=== PATIENT | female | born 1960 | race Caucasian/White ===

== ENCOUNTER → 2023-10-12 16:12 | Outpatient (REF) | payer OTHER, SELFPAY | LOC: WDC 16:12 | PROVIDERS: ATTENDING PHYSICIAN Obstetrics & Gynecology Gynecology; FAMILY PHYSICIAN Physician Assistant | DX: Z12.31 Encounter for screening mammogram for malignant neoplasm of breast (principal) | CPT/HCPCS: 77063; 77067 ==

== ENCOUNTER → 2023-10-27 15:04 | Outpatient (REF) | payer OTHER, SELFPAY ==
[2023-10-27 15:53] LABS: % Basophils 0.6 % (0-2); % Eosinophils 1.9 % (0-6); % Immature Granulocytes 0.2 % (0-0.5); % Lymphocytes 46.3 % (20.5-51.1); % Monocytes 12.9 % (1.7-9.3); % Neutrophils 38.1 % (42.2-75.2); Absolute Eosinophils 0.1 10^3/uL (0-0.7); Absolute Lymphocytes 2.4 10^3/uL (1.2-3.4); Absolute Monocytes 0.7 10^3/uL (0.1-0.6); Hematocrit 38.3 % (37.0-47.0); Hemoglobin 12.8 g/dL (12.0-16.0); Mean Corp Hgb Conc. 33.4 g/dL (33.0-37.0); Mean Corpuscular Hgb 31.1 pg (27.0-31.0); Mean Platelet Volume 10.8 fL (7.4-10.4); Nucleated Red Blood Cells % 0 %; Platelet Count 293 10^3/uL (130-400); Red Blood Cell Count 4.12 10^6/uL (4.20-5.40); Red Cell Dist. Width 13.2 % (11.5-14.5); White Blood Cell Count 5.3 10^3/uL (4.8-10.8)
[2023-10-27 16:17] LABS: Blood Urea Nitrogen 22 mg/dl (7-17); Calcium 10.1 mg/dl (8.4-10.2); Carbon Dioxide 32 mmol/L (22-30); Chloride 99 mmol/L (98-107); Glucose 89 mg/dl (70-99); Potassium 4.1 mmol/L (3.5-5.1); Sodium 137 mmol/L (135-145); eGFR > 60.00
== END ==
LOC: RCS 15:04
PROVIDERS: ATTENDING PHYSICIAN Student in an Organized Health Care Education/Training Program; FAMILY PHYSICIAN Physician Assistant
DX: Z01.818 Encounter for other preprocedural examination (principal)
CPT/HCPCS: 36415; 80048; 85025; 93005

== ENCOUNTER → 2023-11-16 07:07 | Outpatient (REF) | payer OTHER, SELFPAY | LOC: MRI 07:07 | PROVIDERS: ATTENDING PHYSICIAN Student in an Organized Health Care Education/Training Program; FAMILY PHYSICIAN Physician Assistant | DX: M79.672 Pain in left foot (principal) | CPT/HCPCS: 73718 ==

== ENCOUNTER → 2023-12-23 13:44 | Outpatient (REF) | payer OTHER, SELFPAY | LOC: WDC 13:44 | PROVIDERS: ATTENDING PHYSICIAN Obstetrics & Gynecology Gynecology; FAMILY PHYSICIAN Physician Assistant | DX: R92.2 Inconclusive mammogram (principal) | CPT/HCPCS: 76641 ==

== ENCOUNTER → 2024-01-19 06:32 | Day surgery (SDC) | payer OTHER, MEDICARE, SELFPAY | LOC: GI 06:32 | PROVIDERS: ATTENDING PHYSICIAN Internal Medicine | DX: K63.89 Other specified diseases of intestine (principal); K63.3 Ulcer of intestine; K64.8 Other hemorrhoids; R10.32 Left lower quadrant pain; K92.1 Melena; R19.4 Change in bowel habit | CPT/HCPCS: 45380; 88305; 88342 ==

== ENCOUNTER 2024-01-23 23:27 | Emergency (ER) | payer OTHER, MEDICARE, SELFPAY ==
[2024-01-23 23:30] VITALS: BP 130/92
--- NOTE | 2024-01-23 23:38 | ED.GENMED ---
History of Present Illness
General
Chief Complaint: Chest Problem
Source: patient and family
Exam Limitations: none
Time Seen by Provider: 01/23/24 23:38
Nursing documentation reviewed up to this point in time: agreed with
History of Present Illness
History of Present Illness:
This a pleasant 63-year-old female who presents with chest pain. She states that it began early yesterday morning. For the last 18 hours, she states that she has been having intermittent chest pain that is worse upon standing. She does have a
cough. She was just started on mesalamine for Crohn's disease. This was on . Patient denies any other symptoms. Denies fever, chills, nausea or vomiting. Denies previous cardiac history.
Review of Systems
Review of Systems
Allergies reviewed?: Yes
Other source history: family
All Other Systems: ROS reviewed and negative except as documented in HPI and ROS
Constitutional: Reports no symptoms
EENT: Reports no symptoms
Respiratory: Reports no symptoms
Cardiac: Reports chest pain and palpitations; Denies diaphoresis, syncope or other
ABD/GI: Reports no symptoms
: Reports no symptoms
Musculoskeletal: Reports no symptoms
Skin: Reports no symptoms
Neurological: Reports no symptoms
Endocrine: Reports no symptoms
Hematologic/Lymphatic: Reports no symptoms
Psychiatric: Reports no symptoms
Phy Exam
General Physical Exam
General Presentation: well appearing and no apparent distress
General Skin: warm and dry
General Habitus: normal
General Mental: alert
General Hydration: appears well hydrated
ENT Exam
ENT Exam: EOMI, pharynx normal, neck supple and normocephalic
Eye Exam
Eye Exam: PERRL, cornea clear and conjunctiva normal
Cardiovascular Exam
Cardiovascular Exam: regular rate/rhythm, no edema, no murmur and normal peripheral pulses
Pulmonary Exam
Pulmonary Exam: lungs clear, no respiratory distress, no rales, no crackles, no rhonchi, no stridor, no wheezing and no cough
Gastrointestinal Exam
Gastrointestinal Exam: normal bowel sounds, non tender, soft, no organomegaly, no pulsatile mass and non distended
Neurological Exam
Neurological Exam: alert, oriented x3, no motor deficits and speech normal
Musculoskeletal Exam
Musculoskeletal Exam: full ROM and no edema
Skin Exam
Skin Exam: normal color, warm/dry, no rash and no petechia
Psychiatric Exam
Psychiatric Exam: normal mood/affect
Scores
Heart Score for Chest Pain Patients
STEMI patient?: No
History: Slightly or Non-Suspicious
ECG: Normal
Age: >/= 65 years
Risk Factors: 1 or 2 Risk Factors
Troponin: </= Normal Limit
Heart Score for Chest Pain Patients: 3
Heart Score Risk: 2.5% MACE over next 6 weeks
Course
Orders/Labs/Results
Orders:
Orders
01/23/24 23:33
Electrocardiogram (*1) Urgent
Reason for Study: Chest Pain
EKG- Treatment ONCE
01/23/24 23:57
IV Insert/Care/Rem.- Treatment PRN
PTT Urgent
Prothrombin Time Urgent
01/23/24 23:58
Cardiac Monitoring- Treatment ONCE
01/23/24 23:59
Complete Blood Count/With Diff Urgent
Comprehensive Metabolic Panel Urgent
Magnesium Urgent
NT-proBNP Urgent
Troponin I Urgent
01/24/24 00:00
CR Chest - 2 Views Urgent
Reason For Exam: respiratory distress
Abnormal Lab Results
01/23/24
23:59
RBC 3.83 L 10^6/uL
(4.20-5.40)
Hgb 11.8 L g/dL
(12.0-16.0)
Hct 35.0 L %
(37.0-47.0)
MPV 10.8 H fL
(7.4-10.4)
Abs Immat Gran (auto) 0.1 H 10^3/uL
(0-0.05)
Absolute Monos (auto) 1.3 H 10^3/uL
(0.1-0.6)
Immature Gran % 1.0 H %
(0-0.5)
Monocytes % 16.5 H %
(1.7-9.3)
BUN 19 H mg/dl
(7-17)
Glucose 107 H mg/dl
(70-99)
AST 115 H U/L
(14-36)
ALT 72 H U/L
(0-35)
Alkaline Phosphatase 150 H U/L
(38-126)
01/23/24 23:59
01/23/24 23:59
Vital Signs
Initial and Last Documented VS:
Initial Vital Signs
Temp Pulse Resp BP Pulse Ox
98 F 90 22 130/92 100
01/23/24 23:30 01/23/24 23:30 01/23/24 23:30 01/23/24 23:30 01/23/24 23:30
Last Documented Vital Signs
Temp Pulse Resp BP Pulse Ox
98 F 90 22 130/92 99
01/23/24 23:30 01/23/24 23:30 01/23/24 23:30 01/23/24 23:30 01/23/24 23:43
MDM/Problems Addressed
Differential Diagnosis Includes:
Chest pain, musculoskeletal chest pain, medication reaction
MDM/Problems Addressed:
63-year-old female with greater than 12 hours of chest pain.
*EKG
Interpreted by ED Provider?: Yes
EKG Intrepretation Date: 01/24/24
Interpretation: normal
Comparison EKG: no changes
Heart Rate: 82
Rate: normal
Rhythm: sinus
[place]: normal axis
Interval: normal interval
QRS Pattern: normal QRS
Ischemia: no ischemia
*Clinical Education Consultant Interpretation
Rate: normal
Interpretation: normal
Heart Rate: 78
Rhythm: sinus
*Critical Care Note
Total Time (30-74mins, 75-104mins- exclusive of procedures): Not Applicable
ED Attending Note
-
Portions of this chart may have been created with voice recognition software.� Occasional wrong word or��sound alike� substitutions may have occurred due to the inherent limitations of voice recognition software.
Discharge Plan
Departure
Instructions: BLOOD PRESSURE, Chest Pain CBC Follow Up
Prescriptions:
No Action
trazodone 50 mg Tablet
25 mg PO HS
levothyroxine 88 mcg Tablet
88 mcg PO DAILY
duloxetine [Cymbalta] 30 mg Capsule,Delayed Release(Dr/Ec)
30 mg PO DAILY
mesalamine 1.2 gram Tablet,Delayed Release (Dr/Ec)
1.2 g PO DAILY
Referrals:
Bebe Bowles PA-C [Family Provider] -
[facility] [Provider Group] - Next open appointment
Activity Restrictions/Additional Instructions:
It was a pleasure meeting you and taking part in your care. We hope for your continued healing and wellness.
Please read discharge instructions in their entirety. However, they are for general education and may not describe your exact diagnosis at discharge. Information on your ER visit and medical conditions were discussed with you along with appropriate
follow up information...
If indicated, please take your medications as instructed and indicated on discharge paperwork.
Please schedule a follow up appointment as directed. Call to schedule an appointment
Please return to the emergency department with ANY change in, persisting, or worsening of symptoms. If any of your symptoms do not improve, or persist, or become more severe within 6-12 hours, please return to the emergency department for further
care.
Please return to the emergency department if you develop a headache, neck pain/stiffness, fever greater than 100.4F, chest pain, shortness of breath, persistent nausea, vomiting, slurred speech, difficulty walking, numbness/tingling, weakness, signs
of infection or any other symptoms that are worrisome to you.
If you have any questions or concerns please do not hesitate to call the Hospital at or E-mail me directly at [email or web address]
Interventions
Interventions:
*Risk Screen - Suicide Last Done: 01/23/24 23:30
*General Assessment Last Done: 01/23/24 23:43
*Neglect/Abuse Screening Last Done: 01/23/24 23:30
ED- Fall Risk Assessment Last Done: 01/23/24 23:43
*ED COVID-19 Vaccine History Last Done: 01/23/24 23:43
ED- Pulmonary Assessment Last Done: 01/23/24 23:43
ED- Cardiac Assessment Last Done: 01/23/24 23:43
Discharge Date and Time
Print Language: MAURITANIAN
[2024-01-23 23:48] VITALS: BP 112/79
[2024-01-24] VITALS: BP 107/70
[2024-01-24 00:26] LABS: APTT 30.4 Sec (23.4-35.0)
[2024-01-24 00:29] LABS: ALT (SGPT) 72 U/L (0-35); AST (SGOT) 115 U/L (14-36); Albumin 3.9 g/dl (3.5-5.0); Alkaline Phosphatase 150 U/L (38-126); Blood Urea Nitrogen 19 mg/dl (7-17); Calcium 9.4 mg/dl (8.4-10.2); Carbon Dioxide 28 mmol/L (22-30); Chloride 100 mmol/L (98-107); Glucose 107 mg/dl (70-99); Magnesium 1.9 mg/dl (1.6-2.3); Potassium 4.2 mmol/L (3.5-5.1); Sodium 137 mmol/L (135-145); Total Bilirubin 0.4 mg/dl (0.2-1.3); Total Protein 6.7 g/dl (6.3-8.2); eGFR > 60.00
[2024-01-24 00:33] VITALS: BMI 20.2
[2024-01-24 00:37] LABS: % Basophils 0.4 % (0-2); % Eosinophils 3.7 % (0-6); % Lymphocytes 28.1 % (20.5-51.1); % Monocytes 16.5 % (1.7-9.3); % Neutrophils 50.3 % (42.2-75.2); Absolute Eosinophils 0.3 10^3/uL (0-0.7); Absolute Immature Granulocytes 0.1 10^3/uL (0-0.05); Absolute Lymphocytes 2.2 10^3/uL (1.2-3.4); Absolute Monocytes 1.3 10^3/uL (0.1-0.6); Absolute Neutrophils 3.9 10^3/uL (1.4-6.5); Hemoglobin 11.8 g/dL (12.0-16.0); Mean Corp Hgb Conc. 33.7 g/dL (33.0-37.0); Mean Corpuscular Hgb 30.8 pg (27.0-31.0); Mean Corpuscular Volume 91.4 fL (81.0-99.0); Mean Platelet Volume 10.8 fL (7.4-10.4); Nucleated Red Blood Cells % 0 %; Platelet Count 339 10^3/uL (130-400); Red Blood Cell Count 3.83 10^6/uL (4.20-5.40); Red Cell Dist. Width 13.2 % (11.5-14.5); White Blood Cell Count 7.8 10^3/uL (4.8-10.8)
[2024-01-24 00:40] LABS: Troponin I < 0.012 ng/ml
[2024-01-24 01:01] VITALS: BP 121/75
[2024-01-24 01:21] LABS: NT-proBNP 637 pg/ml
== END 2024-01-24 01:30 | disposition home or self-care (01) ==
LOC: EMR 23:27
PROVIDERS: EMERGENCY PHYSICIAN Student in an Organized Health Care Education/Training Program; FAMILY PHYSICIAN Physician Assistant
DX: R07.89 Other chest pain (principal); R00.2 Palpitations; R05.9 Cough, unspecified; K50.90 Crohn's disease, unspecified, without complications; Z86.16 Personal history of COVID-19
CPT/HCPCS: 99283; 71046; 80053; 83735; 83880; 84484; 85025; 85610; 85730; 93005

== ENCOUNTER → 2024-02-28 14:19 | Outpatient (REF) | payer MEDICARE, SELFPAY | LOC: RCS 14:19 | PROVIDERS: ATTENDING PHYSICIAN Internal Medicine Cardiovascular Disease; FAMILY PHYSICIAN Physician Assistant | DX: R07.89 Other chest pain (principal) | CPT/HCPCS: 93017 ==

== ENCOUNTER → 2024-03-17 14:01 | Outpatient (REF) | payer MEDICARE, SELFPAY | LOC: RCS 14:01 | PROVIDERS: ATTENDING PHYSICIAN Internal Medicine Cardiovascular Disease; FAMILY PHYSICIAN Physician Assistant | DX: R07.89 Other chest pain (principal) | CPT/HCPCS: 93306 ==

== ENCOUNTER → 2024-06-05 14:15 | Outpatient (REF) | payer MEDICARE, SELFPAY | LOC: RAD 14:15 | PROVIDERS: ATTENDING PHYSICIAN Internal Medicine; FAMILY PHYSICIAN Physician Assistant | DX: R11.10 Vomiting, unspecified (principal) | CPT/HCPCS: 74022 ==

== ENCOUNTER → 2024-06-06 06:32 | Day surgery (SDC) | payer MEDICARE, SELFPAY | LOC: GI 06:32 | PROVIDERS: ATTENDING PHYSICIAN Internal Medicine | DX: K51.90 Ulcerative colitis, unspecified, without complications (principal); K52.89 Other specified noninfective gastroenteritis and colitis; K51.814 Other ulcerative colitis with abscess | CPT/HCPCS: 45331; 88305; 88342 ==

== ENCOUNTER → 2024-10-12 16:21 | Outpatient (REF) | payer MEDICARE, SELFPAY | LOC: WDC 16:21 | PROVIDERS: ATTENDING PHYSICIAN Obstetrics & Gynecology Gynecology; FAMILY PHYSICIAN Internal Medicine | DX: Z12.31 Encounter for screening mammogram for malignant neoplasm of breast (principal) | CPT/HCPCS: 77063; 77067 ==

== ENCOUNTER 2024-10-25 13:41 | Outpatient (RCR) | payer MEDICARE, SELFPAY ==
[2024-10-25] MEDS: VENOFER 110 MG IV (14:09)
[2024-10-25 14:14] VITALS: BP 98/58
[2024-10-25 15:35] VITALS: BP 98/56
== END 2024-10-26 11:39 | disposition home or self-care (01) ==
LOC: OID 13:41
PROVIDERS: ATTENDING PHYSICIAN Internal Medicine; FAMILY PHYSICIAN Physician Assistant
DX: K51.511 Left sided colitis with rectal bleeding (principal); D50.9 Iron deficiency anemia, unspecified; Z59.71 Insufficient health insurance coverage
CPT/HCPCS: 96365; J1756

== ENCOUNTER 2024-11-22 13:41 | Outpatient (RCR) | payer MEDICARE, SELFPAY ==
[2024-11-01] MEDS: VENOFER 110 MG IV (14:01)
[2024-11-01 14:08] VITALS: BP 98/43
[2024-11-01 15:13] VITALS: BP 101/49
[2024-11-08] MEDS: VENOFER 110 MG IV (14:00)
[2024-11-08 14:05] VITALS: BP 97/56
[2024-11-08 15:10] VITALS: BP 96/55
[2024-11-08 16:15] VITALS: BP 96/55
[2024-11-15 13:47] VITALS: BP 96/46
[2024-11-15] MEDS: VENOFER 110 MG IV (14:03)
[2024-11-15 15:21] VITALS: BP 97/55
[2024-11-22 13:46] VITALS: BP 101/58
[2024-11-22] MEDS: VENOFER 110 MG IV (13:57)
[2024-11-22 15:03] VITALS: BP 92/53
== END 2024-11-23 09:09 | disposition home or self-care (01) ==
LOC: OID 13:41
PROVIDERS: ATTENDING PHYSICIAN Internal Medicine; FAMILY PHYSICIAN Physician Assistant
DX: D50.9 Iron deficiency anemia, unspecified (principal); K51.00 Ulcerative (chronic) pancolitis without complications; Z59.71 Insufficient health insurance coverage
CPT/HCPCS: 96365; J1756

== ENCOUNTER 2025-07-12 06:23 | Day surgery (SDC) | payer MEDICARE, SELFPAY | END 2025-07-12 09:59 | disposition home or self-care (01) | LOC: GI 06:23 | PROVIDERS: ATTENDING PHYSICIAN Internal Medicine | DX: K51.50 Left sided colitis without complications (principal); K51.20 Ulcerative (chronic) proctitis without complications; K62.89 Other specified diseases of anus and rectum; K44.9 Diaphragmatic hernia without obstruction or gangrene; K31.7 Polyp of stomach and duodenum; K21.9 Gastro-esophageal reflux disease without esophagitis; K31.89 Other diseases of stomach and duodenum; K22.89 Other specified disease of esophagus; K31.A19 Gastric intestinal metaplasia without dysplasia, unspecified site | CPT/HCPCS: 45380; 43239; 88305; 88342 ==